=== PATIENT | female | born 1955 | race Caucasian/White ===

== ENCOUNTER 2020-08-02 16:22 | Emergency (ER) | payer BC ==
--- NOTE | 2020-08-02 21:28 | RAD ---
LEFT ANKLE THREE VIEWS: 08/02/20 Marked swelling is seen just beneath the lateral malleolus, however, no fractures were apparent. The ankle joint space appears normal. There is ossification at the insertion of the Achilles tendon on th e calcaneus. There may have been an old healed injury at the base of the fifth metatarsal. IMPRESSION: Very prominent lateral swelling, but no acute bony changes. POS: HOME
--- NOTE | 2020-08-02 21:31 | RAD ---
LEFT FOOT THREE VIEWS: 08/02/20 Swelling is seen on the lateral and dorsal portions of the proximal foot. An old injury at the base o f the fifth metatarsal is probable. No acute fractures were identified. A little periosteal prominenc e in the distal second metatarsal shaft is obviously longstanding. Some mild arthritic changes are se en in a few of the tarsometatarsal joints, particularly the first and second. This is also true to so me degree of the first MTP joint. IMPRESSION: No acute bony finding. POS: HOME
== END 2020-08-02 17:21 | disposition home or self-care (01) ==
LOC: BURERS 16:22
DX: S93.402A Sprain of unspecified ligament of left ankle, initial encounter (principal); Z79.82 Long term (current) use of aspirin; Z79.51 Long term (current) use of inhaled steroids; Z79.899 Other long term (current) drug therapy; X50.9XXA Other and unspecified overexertion or strenuous movements or postures, initial encounter

== ENCOUNTER 2022-04-30 13:48 | Emergency (ER) | payer MEDICARE | END 2022-04-30 15:01 | disposition home or self-care (01) | LOC: BURERS 13:48 | DX: R09.89 Other specified symptoms and signs involving the circulatory and respiratory systems (principal); E03.9 Hypothyroidism, unspecified; I10 Essential (primary) hypertension; J44.9 Chronic obstructive pulmonary disease, unspecified; Z87.891 Personal history of nicotine dependence; Z79.899 Other long term (current) drug therapy | CPT/HCPCS: 99283 ==